=== PATIENT | female | born 1960 | race Caucasian/White ===

== ENCOUNTER 2016-08-03 01:51 | Inpatient (IN) | payer MEDICARE ==
[~2016-08-03] VITALS: Ht 165.1 cm; Wt 43.5 kg
[~2016-08-03 01:51] MED LIST: SPIRIVA18 MCG INH
[2016-08-03 02:41] LABS: HEMOGLOBIN 13.8 gm/dl (12.3-15.3); RED BLOOD COUNT 4.41 M/UL (4.00-5.10); WHITE BLOOD COUNT 20.5 K/UL (4.5-11.0)
[2016-08-03 03:03] LABS: BUN/CREATININE RATIO 20 (0-10)
[2016-08-03 06:32] LABS: HEMOGLOBIN 13.1 gm/dl (12.3-15.3); RED BLOOD COUNT 4.19 M/UL (4.00-5.10)
[2016-08-03 07:08] LABS: BUN/CREATININE RATIO 20 (0-10)
[2016-08-03] MEDS ORDERED: NEURONTIN 300300 MG PO (09:21)
[2016-08-03] MEDS ORDERED: ALBUTEROL0.63 MG/3 INH (09:21)
[2016-08-03] MEDS ORDERED: VENTOLIN HFA 66.7 GM INH (09:23)
[2016-08-03] MEDS ORDERED: SYMBICORT 80-41 INHA INH (09:24)
[2016-08-04 06:03] LABS: HEMOGLOBIN 12.1 gm/dl (12.3-15.3); RED BLOOD COUNT 3.92 M/UL (4.00-5.10); WHITE BLOOD COUNT 16.6 K/UL (4.5-11.0)
[2016-08-04 06:15] LABS: BUN/CREATININE RATIO 28 (0-10)
[2016-08-05 04:36] LABS: HEMOGLOBIN 11.7 gm/dl (12.3-15.3); RED BLOOD COUNT 3.8 M/UL (4.00-5.10); WHITE BLOOD COUNT 14.1 K/UL (4.5-11.0)
[2016-08-05 05:00] LABS: BUN/CREATININE RATIO 38 (0-10)
[2016-08-06] MEDS ORDERED: MULTIVITAMINS1 EAC1 PO (13:02)
[2016-08-06] MEDS ORDERED: LOPRESSOR 25 MG25 MG PO (13:04)
[2016-08-06] MEDS ORDERED: LEVAQUIN750 MG PO (13:04)
[2016-08-06] MEDS ORDERED: MEDROL DOSEPAK 24 MG PO (13:05)
[2016-08-06] MEDS ORDERED: ENSURE ORIGINA237 ML PO (13:05)
[2016-08-06] MEDS ORDERED: NORVASC 5 MG TAB5 MG PO (13:06)
== END 2016-08-06 15:10 | disposition home or self-care (01) | DRG 871 ==
LOC: ER1 01:51 → ZEROF 04:00 → PROG CARE 15:12 → MED SURG 4 08-04 11:40
PROVIDERS: Internal Medicine; Physician Assistant; ADMIT Internal Medicine
DX: A41.9 Sepsis, unspecified organism (principal); J18.9 Pneumonia, unspecified organism; J96.01 Acute respiratory failure with hypoxia; J44.0 Chronic obstructive pulmonary disease with (acute) lower respiratory infection; J44.1 Chronic obstructive pulmonary disease with (acute) exacerbation; E87.3 Alkalosis; J20.9 Acute bronchitis, unspecified; I71.2 Thoracic aortic aneurysm, without rupture; I10 Essential (primary) hypertension; F41.9 Anxiety disorder, unspecified; R00.0 Tachycardia, unspecified; E78.5 Hyperlipidemia, unspecified; I27.2 Other secondary pulmonary hypertension; Z66 Do not resuscitate; Z99.81 Dependence on supplemental oxygen; G89.4 Chronic pain syndrome; M54.5 Low back pain; Z87.891 Personal history of nicotine dependence; Z85.3 Personal history of malignant neoplasm of breast; Z79.899 Other long term (current) drug therapy; Z79.51 Long term (current) use of inhaled steroids; E53.8 Deficiency of other specified B group vitamins; E55.9 Vitamin D deficiency, unspecified
CPT/HCPCS: ECHO; 36415; 36600; 71010; 80048; 80053; 81001; 82550; 82553; 82607; 82803; 83605; 83874; 84439; 84443; 84484; 85025; 85027; 87040; 87070; 87205; 93005; 93306; 94640; 94664; 96365; 96375; 99285; J1956; J2060; J2920; J2930; J7030; J7509